=== PATIENT | female | born 1950 | race Caucasian/White ===

== ENCOUNTER → 2018-11-17 | Outpatient (CLI) | payer BC, MEDICARE | LOC: MAMMO 09:29 | PROVIDERS: ATTEND Internal Medicine | DX: Z12.31 Encounter for screening mammogram for malignant neoplasm of breast (principal) | CPT/HCPCS: 77067 ==

== ENCOUNTER → 2019-06-17 | Outpatient (CLI) | payer MEDICARE, BC ==
--- NOTE | 2019-06-17 12:10 | Diagnostic Imaging Report ---
EXAMINATION: CHEST 2 VIEWS INDICATION: Sinusitis, bronchitis COMPARISON: None FINDINGS: LINES/TUBES:None LUNGS:The lungs are well-inflated. No focal consolidation or pulmonary edema. PLEURA:No pleural effusion or pneumothorax. MEDIASTINUM:The cardiomediastinal silhouette appears normal in size and shape. Atherosclerotic calcifications of the thoracic aorta. BONES/SOFT TISSUES:No acute osseous injury. ABDOMEN:No free air under the diaphragm. IMPRESSION: No focal pneumonia or pulmonary edema. Signed by: Tay Zavaleta MD on 06/17/2019 12:06 PM
--- NOTE | 2019-06-17 12:43 | Diagnostic Imaging Report ---
EXAMINATION: SINUSES (PARANASAL)MIN 3VIEWS INDICATION: Sinusitis COMPARISON: None FINDINGS: The paranasal sinuses and mastoid air cells are well aerated. No air fluid level. No acute osseous injury. The maxillary teeth are absent. Multiple mandibular teeth are also absent. IMPRESSION: Radiographically clear sinuses. Signed by: Tay Zavaleta MD on 06/17/2019 12:40 PM
== END ==
LOC: RAD 10:48
PROVIDERS: ATTEND Internal Medicine
DX: R05 Cough (principal); J40 Bronchitis, not specified as acute or chronic; J32.9 Chronic sinusitis, unspecified
CPT/HCPCS: 70220; 71046